=== PATIENT | male | born 1975 | race Caucasian/White ===

== ENCOUNTER 2018-08-20 15:52 | Emergency (ER) | payer OTHER ==
[~2018-08-20] VITALS: Ht 180.3 cm; Wt 90.7 kg
--- NOTE | 2018-08-20 16:00 | NUR ---
PT BIB SELF. COMPLAINING OF "IM HERE TO GET HELP FROM MY ALCOHOLISM, THE TREATMENT CENTER CANT SEE ME UNTIL 12 DAYS FROM NOW" AOX4. AMBULATORY W/STEADY GAIT. NO SOB NOTED. NO ACUTE DISTRESS NOTED. WILL CONTINUE TO MONITOR.
[2018-08-20] MEDS ORDERED: CHLORDIAZEPOXIDE HCL 25 MG CAPSULE PO ONE (16:30)
[2018-08-20] MEDS ORDERED: Thiamine 100 MG in IV D5W 50 ML IV SCH (16:30)
[2018-08-20] MEDS ORDERED: IV NS 0.9% 1,000 ML BAG IV ONE (16:30)
[2018-08-20] MEDS ORDERED: CHLORDIAZEPOXIDE HCL 25 MG CAPSULE ONE (16:34)
[2018-08-20] MEDS ORDERED: ONDANSETRON 4 MG TAB.RAPDIS ONE (16:44)
[2018-08-20] MEDS ORDERED: ONDANSETRON 4 MG TAB.RAPDIS SL ONE (17:00)
[2018-08-20 17:44] VITALS: BP 143/98
[2018-08-21] MEDS ORDERED: METO50TA7 PO (08:45)
[2018-08-21] MEDS ORDERED: OMEP10CA4 PO (08:45)
[2018-08-21] MEDS ORDERED: FLUO40CA8 PO (08:45)
[2018-08-21] MEDS ORDERED: LOSA1TAB39 PO (08:45)
== END 2018-08-20 17:46 | disposition home or self-care (01) ==
LOC: ER 15:54
DX: F10.239 Alcohol dependence with withdrawal, unspecified (principal); R11.2 Nausea with vomiting, unspecified; E86.0 Dehydration; I10 Essential (primary) hypertension; F41.9 Anxiety disorder, unspecified; Y90.9 Presence of alcohol in blood, level not specified; Z90.89 Acquired absence of other organs
CPT/HCPCS: 96365; 99284; A4606; A6402; J3411; J7030; J7060; Q0162; Z7610